=== PATIENT | female | born 1995 ===

== ENCOUNTER → 2018-10-21 | Outpatient (CLI) | payer BC ==
[~2018-10-21] MED LIST: ALBU8.5H IH; BUDRES25 INH; CETI10CA8 PO; DORN1SOL2 IH; LACT1CAP6 PO; LIPA1CAP8 PO; MONT10TA PO; POLY17PO25 PO; RANI-54 PO; [UNRECOGNIZED DRUG - CODE] PO
[2018-10-21 11:05] LABS: PLATELET COUNT, AUTOMATED 442 K/uL (150-450)
== END ==
LOC: LAB 10:51
PROVIDERS: ATTEND Obstetrics & Gynecology
DX: Z34.91 Encounter for supervision of normal pregnancy, unspecified, first trimester (principal); B96.89 Other specified bacterial agents as the cause of diseases classified elsewhere
CPT/HCPCS: 36415; 81001; 85025; 86592; 86703; 86762; 86850; 86900; 86901; 87088; 87340